=== PATIENT | female | born 1970 | race Caucasian/White ===

== ENCOUNTER 2022-06-23 23:54 | Observation (INO) | payer OTHER ==
[2022-06-24] MEDS ORDERED: Pantoprazole 80 MG, Admixture Fee 1 EACH in Sodium Chloride 0.9% 100 ML IVPB SCH ×3 (04:00→10:59)
[2022-06-24] MEDS ORDERED: Acetaminophen 650 MG Suppository PR PRN (04:07)
[2022-06-24] MEDS ORDERED: Ondansetron ODT 4 MG TAB PO PRN (04:07)
[2022-06-24] MEDS ORDERED: Ondansetron PF 4 MG/2 ML Vial IVP PRN (04:07)
[2022-06-24] MEDS ORDERED: Acetaminophen 325 MG TAB PO PRN (04:07)
[2022-06-24 04:25] VITALS: BMI 34.0
[2022-06-24 08:25] LABS: #Eosinphils 0.5 thou/uL (0.0-0.7); #Monocytes 1.4 thou/uL (0.11-0.59); #Neutrophils 10.7 thou/uL (1.40-6.50); %Basophils 0.3 % (0.0-1.0); %Eosinophils 3.1 % (0.0-10.0); %Lymphocytes 16.5 % (21.0-51.0); %Monocytes 9.3 % (0.0-10.0); %Neutrophils 70.2 % (42.0-75.0); Hemoglobin 6.1 g/dL (12.0-16.0); Mean Corpuscular HGB CONC 30.3 g/dL (32.0-36.0); Mean Corpuscular Hemoglobin 22.4 pg (27.0-31.0); Mean Corpuscular Volume 73.9 fl (78.0-98.0); Mean Platelet Volume 9.2 fL (7.4-10.4); RBC Distribution Width 23.2 % (11.5-14.5); Red Blood Cell (RBC) Count 2.72 mill/uL (4.20-5.40); White Blood Cell (WBC) Count 15.2 10x3/uL (4.8-10.8)
[2022-06-24 08:34] LABS: Platelet Count 690 10x3/uL (130-400)
[2022-06-24 09:40] LABS: Calcium 7.8 mg/dL (7.8-10.44); Chloride 111 mmol/L (98-107); Potassium 3.7 mmol/L (3.5-5.1); Sodium 138 mmol/L (136-145)
[2022-06-24 09:41] LABS: Glucose 88 mg/dL (70-105)
[2022-06-24 09:42] LABS: Carbon Dioxide 19 mmol/L (22-29)
[2022-06-24 09:44] LABS: Calc. Creatinine Clearance 117 mL/min (70-130); Estimated GFR 92
[2022-06-24 09:45] LABS: BUN (Urea Nitrogen) 12 mg/dL (9.8-20.1)
[2022-06-24 10:48] LABS: Anion Gap 12 mmol/L (10-20)
[2022-06-24] MEDS: Pantoprazole 80 MG, Admixture Fee 1 EACH in Sodium Chloride 0.9% 100 ML IVPB SCH ×2 (10:55→22:43)
[2022-06-24 11:46] LABS: Anisocytosis MODERATE=16-30 cells HPF (0-5); CellaVision Operator ID LAB.NR; Hypochromia MODERATE=16-30 cells HPF (0-5); Large Platelets 5.2 % (0-5); Platelet Morphology Comment Platelets Increased; Polychromasia MODERATE = 3-4 cells HPF (0-2); Target Cells SLIGHT = 2-5 cells HPF (0-1)
[2022-06-24] MEDS ORDERED: GoLYTELY 4,000 ml Bottle PO SCH (15:00)
[2022-06-24 21:22] LABS: Hemoglobin 7.5 g/dL (12.0-16.0); Platelet Count 638 10x3/uL (130-400)
[2022-06-25 05:36] LABS: #Eosinphils 0.3 thou/uL (0.0-0.7); #Monocytes 0.9 thou/uL (0.11-0.59); #Neutrophils 3.3 thou/uL (1.40-6.50); %Basophils 0.6 % (0.0-1.0); %Lymphocytes 37.1 % (21.0-51.0); %Neutrophils 45.6 % (42.0-75.0); Hemoglobin 7.1 g/dL (12.0-16.0); Mean Corpuscular HGB CONC 29.6 g/dL (32.0-36.0); Mean Corpuscular Hemoglobin 22.4 pg (27.0-31.0); Mean Corpuscular Volume 75.7 fl (78.0-98.0); Mean Platelet Volume 8.9 fL (7.4-10.4); Platelet Count 587 10x3/uL (130-400); RBC Distribution Width 21.6 % (11.5-14.5); Red Blood Cell (RBC) Count 3.17 mill/uL (4.20-5.40); White Blood Cell (WBC) Count 7.3 10x3/uL (4.8-10.8)
[2022-06-25 06:25] LABS: Anion Gap 11 mmol/L (10-20); BUN (Urea Nitrogen) 8 mg/dL (9.8-20.1); Calc. Creatinine Clearance 125 mL/min (70-130); Calcium 7.4 mg/dL (7.8-10.44); Carbon Dioxide 21 mmol/L (22-29); Chloride 111 mmol/L (98-107); Estimated GFR 100; Glucose 90 mg/dL (70-105); Potassium 3.8 mmol/L (3.5-5.1); Sodium 139 mmol/L (136-145)
[2022-06-25] MEDS: Pantoprazole 80 MG, Admixture Fee 1 EACH in Sodium Chloride 0.9% 100 ML IVPB SCH (08:16)
[2022-06-25] MEDS: Bupropion 150 MG XL TAB PO SCH ×2 (08:16→11:27)
[2022-06-25] MEDS ORDERED: PROPOFOL 200 MG/20 ML VIAL ONE (09:16)
[2022-06-25] MEDS ORDERED: Lidocaine 1% PF 5 ML VIAL ONE (09:16)
[2022-06-25] MEDS ORDERED: Ondansetron HCl/PF 4 MG/2 ML Vial IVP PRN (09:33)
[2022-06-25 15:35] VITALS: BP 112/61; TEMP 97.9
[2022-06-26] MEDS ORDERED: Ferrous Sulfate 325 MG TAB PO SCH (08:00)
== END 2022-06-25 16:00 | disposition home or self-care (01) ==
LOC: UNDOADMOB 23:54 → 2SW 23:54
PROVIDERS: ADMIT Internal Medicine; ATTEND Internal Medicine
PROC: 0DB48ZX Excision of Esophagogastric Junction, Via Natural or Artificial Opening Endoscopic, Diagnostic (ICD-10-PCS; principal; 2022-06-25)
PROC: 0DB78ZX Excision of Stomach, Pylorus, Via Natural or Artificial Opening Endoscopic, Diagnostic (ICD-10-PCS; 2022-06-25)
PROC: 0DBH8ZX Excision of Cecum, Via Natural or Artificial Opening Endoscopic, Diagnostic (ICD-10-PCS; 2022-06-25)
PROC: 0DBN8ZX Excision of Sigmoid Colon, Via Natural or Artificial Opening Endoscopic, Diagnostic (ICD-10-PCS; 2022-06-25)
PROC: 0DBC8ZX Excision of Ileocecal Valve, Via Natural or Artificial Opening Endoscopic, Diagnostic (ICD-10-PCS; 2022-06-25)
DX: D62 Acute posthemorrhagic anemia (principal); D12.0 Benign neoplasm of cecum; K63.5 Polyp of colon; K63.3 Ulcer of intestine; K31.9 Disease of stomach and duodenum, unspecified; K57.31 Diverticulosis of large intestine without perforation or abscess with bleeding; K21.01 Gastro-esophageal reflux disease with esophagitis, with bleeding; K25.4 Chronic or unspecified gastric ulcer with hemorrhage; K29.81 Duodenitis with bleeding; K44.9 Diaphragmatic hernia without obstruction or gangrene; D72.829 Elevated white blood cell count, unspecified; G89.29 Other chronic pain; M54.50 Low back pain, unspecified; N20.0 Calculus of kidney; K59.00 Constipation, unspecified; F17.290 Nicotine dependence, other tobacco product, uncomplicated; Z87.11 Personal history of peptic ulcer disease; Z88.8 Allergy status to other drugs, medicaments and biological substances; Z90.49 Acquired absence of other specified parts of digestive tract
CPT/HCPCS: 36415; 36430; 80048; 85025; 86850; 86900; 86901; 88305; 96374; 96376; C9113; G0378; J2704; J3490; P9016